=== PATIENT | male | born 1960 | race Caucasian/White ===

== ENCOUNTER 2017-11-27 14:43 | Emergency (ER) | payer BC, OTHER ==
[2017-11-27] MEDS ORDERED: LORAZEPAM INJ 2 MG/1 ML VIAL IV ONE (14:50)
--- NOTE | 2017-11-27 15:06 | ER Document Report ---
ED Seizure - General Stated Complaint: POSSIBLE SEIZURE Time Seen by Provider: 11/27/17 14:47 Mode of Arrival: Medic Information source: Patient, Emergency Med Personnel TRAVEL OUTSIDE OF THE [place] IN LAST 30 DAYS: No - HPI Patient complains to provider of: First seizure Quality of pain: Other - SORENESS Severity: Mild Continued on arrival to ED: No Can details of seizure be obtained/verified: Yes Episode witnessed (by whom): Yes - [employer] [facility] [employer] Current seizure medications: No: Carbamazepine, Gabatin, Keppra, Lamictal, Phenytoin, Phenobarbital, Trileptal, Valproic acid, Vimpat, Other Preceding symptoms/context: denies: Recent illness/fever, Recent alcohol intake , Recent drug use, Sleep deprivation, Missed dose of meds, Changed meds or dosage, Somnolence History of: denies: Brain tumor or mets, CVA, Hydrocephalus, Migraines, TBI, V/ P shunt Character of seizure: Complete loss/conscious, Generalized shaking. No: Incontinent stool, Incontinent bladder Post-ictal symptoms: Confusion, Speech difficulty Injuries: Face - L. ZYGOMATIC Associated Symptoms: None - Related Data Allergies/Adverse Reactions: No Known Allergies Allergy (Verified 11/27/17 15:36) Past Medical History - General Information source: Patient - Social History Smoking Status: Never Smoker Cigarette use (# per day): No Chew tobacco use (# tins/day): No Frequency of alcohol use: None Drug Abuse: None Lives with: Alone Family History: DM Patient has suicidal ideation: No Patient has homicidal ideation: No - Past Medical History Cardiac Medical History: Reports: None Pulmonary Medical History: Reports: None EENT Medical History: Reports: None Neurological Medical History: Reports: Hx Seizures - ONCE, MAY 2017, F/U EVAL. NEG. Endocrine Medical History: Reports: None Renal/ Medical History: Reports: None Malignancy Medical History: Reports None GI Medical History: Reports: None Musculoskeltal Medical History: Reports None Psychiatric Medical History: Reports: None Surgical Hx: Negative Review of Systems - Review of Systems Constitutional: No symptoms reported. denies: Chills, Fever EENT: No symptoms reported Cardiovascular: No symptoms reported Respiratory: No symptoms reported Gastrointestinal: No symptoms reported Genitourinary: No symptoms reported Musculoskeletal: No symptoms reported Skin: See HPI Neurological/Psychological: See HPI Physical Exam - Vital signs Vitals: Temp Pulse Resp BP Pulse Ox 98.7 F 79 10 L 115/78 98 11/27/17 14:45 11/27/17 14:45 11/27/17 14:45 11/27/17 14:45 11/27/17 14:45 Interpretation: Other - BRADYPNEIC. No: Hypotensive, Hypertensive, Bradycardic , Tachycardic, Hypoxic, Tachypneic, Febrile - General General appearance: Appears well, Alert In distress: None - HEENT Head: Normocephalic. No: Atraumatic - SEE "SKIN" BELOW Eyes: Other - DISPLACED HARD CONTACT LENS O.S. Conjunctiva: Normal Ears: Normal Nasal: Normal Mouth/Lips: Normal Mucous membranes: Normal Pharynx: Normal Neck: Normal - Respiratory Respiratory status: No respiratory distress Breath sounds: Normal - Cardiovascular Rhythm: Regular Heart sounds: Normal auscultation Murmur: No - Abdominal Inspection: Normal Distension: No distension Bowel sounds: Normal - Extremities General upper extremity: Normal inspection General lower extremity: Normal inspection - Neurological Neuro grossly intact: Yes Cognition: Confused - INITIALLY, CLEARED QUICKLY Orientation: AAOx4 [place] Coma Scale Eye Opening: Spontaneous [place] Coma Scale Verbal: Oriented [place] Coma Scale Motor: Obeys Commands [place] Coma Scale Total: 15 Speech: Normal Cranial nerves: Normal Cerebellar coordination: Normal - Psychological Associated symptoms: Normal affect, Normal mood - Skin Skin Temperature: Warm Skin Moisture: Dry Skin Color: Normal Skin Turgor: Elastic Skin irregularity: other - CONTUSION/ABRASION L. ZYGOMATIC AREA. Course - Vital Signs Vital signs: Temp Pulse Resp BP Pulse Ox 98.7 F 79 11 L 118/78 98 11/27/17 14:45 11/27/17 14:45 11/27/17 17:01 11/27/17 17:01 11/27/17 17:01 - Laboratory Result Diagrams: 11/27/17 14:57 11/27/17 15:45 Laboratory results interpreted by me: 11/27/17 11/27/17 14:57 15:45 MCV 98 H Glucose 116 H Magnesium 2.5 H Total Bilirubin 1.7 H Alkaline Phosphatase 37 L Salicylates < 1.0 L Acetaminophen < 10 L Discharge - Discharge Clinical Impression: Seizure Facial abrasion Qualifiers: Encounter type: initial encounter Qualified Code(s): S00.81XA - Abrasion of other part of head, initial encounter Condition: Stable Disposition: HOME, SELF-CARE Instructions: New Seizure ([facility]) Additional Instructions: REST, DRINK PLENTY OF FLUIDS. AVOID DRIVING OR DOING ANYTHING HAZARDOUS UNTIL YOU ARE SEEN AND CLEARED BY NEUROLOGIST. FOLLOW UP WITH [facility] TOMORROW (TUESDAY, NOVEMBER 28). CALL DR. FENG'S OFFICE TOMORROW AND INQUIRE WHETHER HE CAN SEE YOU FOR FOLLOW-UP EVALUATION. RETURN TO E.R. IF PROBLEMS, ANY TIME.
[2017-11-27 15:43] LABS: ABSOLUTE BASOPHILS # (AUTO) 0.1 10^3/uL (0.0-0.2); ABSOLUTE EOSINOPHILS # (AUTO) 0.1 10^3/uL (0.0-0.6); ABSOLUTE LYMPHOCYTES (AUTO) 2.6 10^3/uL (0.5-4.7); ABSOLUTE MONOCYTES (AUTO) 0.4 10^3/uL (0.1-1.4); ABSOLUTE NEUT (AUTO) 3.1 10^3/uL (1.7-8.2); EOSINOPHILS % (AUTO) 1.2 % (0-6); HEMATOCRIT 48.3 % (37.9-51.0); HEMOGLOBIN 16.1 g/dL (13.5-17.0); LYMPHOCYTES % (AUTO) 41.6 % (13-45); MEAN CORPUSCULAR HEMOGLOBIN 32.7 pg (27.0-33.4); MEAN CORPUSCULAR HGB CONC 33.4 g/dL (32.0-36.0); MEAN CORPUSCULAR VOLUME 98 fl (80-97); MONOCYTES % (AUTO) 6.2 % (3-13); PLATELET COUNT 155 10^3/uL (150-450); RED BLOOD COUNT 4.93 10^6/uL (4.35-5.55); RED CELL DISTRIBUTION WIDTH 13.2 % (11.5-14.0); TOTAL CELLS COUNTED % (AUTO) 100 %; WHITE BLOOD COUNT 6.2 10^3/uL (4.0-10.5)
--- NOTE | 2017-11-27 15:56 | RADIOLOGY REPORT (SQ) ---
EXAM DESCRIPTION: CT HEAD WITHOUT COMPLETED DATE/TIME: 11/27/2017 3:38 pm REASON FOR STUDY: FIRST TIME SEIZURE COMPARISON: None. TECHNIQUE: Axial images acquired through the brain without intravenous contrast. Images reviewed wi th bone, brain and subdural windows. Images stored on PACS. All CT scanners at this facility use dose modulation, iterative reconstruction, and/or weight based d osing when appropriate to reduce radiation dose to as low as reasonably achievable (ALARA). [facility]: Dose Right [facility]: CareDose [facility]: Dose Right [facility]: Teradose 4D [facility]: V-Key RADIATION DOSE: CT Rad equipment meets quality standard of care and radiation dose reduction techniq ues were employed. CTDIvol: 48.7 mGy. DLP: 980 mGy-cm. mGy. LIMITATIONS: None. FINDINGS: VENTRICLES: Normal size and contour. CEREBRUM: No masses. No hemorrhage. No midline shift. No evidence for acute infarction. Normal gra y/white matter differentiation. No areas of low density in the white matter. CEREBELLUM: No masses. No hemorrhage. No alteration of density. No evidence for acute infarction. EXTRAAXIAL SPACES: No fluid collections. No masses. ORBITS AND GLOBE: No intra- or extraconal masses. Normal contour of globe without masses. CALVARIUM: No fracture. PARANASAL SINUSES: No fluid or mucosal thickening. SOFT TISSUES: No mass or hematoma. OTHER: No other significant finding. IMPRESSION: No acute intracranial findings. EVIDENCE OF ACUTE STROKE: No COMMENT: Quality ID # [id number]: Final reports with documentation of one or more dose reduction techniques (e.g., Automated exposure control, adjustment of the mA and/or kV according to patient size, use of iterative reconstruction technique) TECHNICAL DOCUMENTATION: JOB ID: [id number] [place]-72 2010 [employer]- All Rights Reserved Reading location - IP/workstation name: [email or web address]
--- NOTE | 2017-11-27 16:14 | RADIOLOGY REPORT (SQ) ---
EXAM DESCRIPTION: HUMERUS LEFT COMPLETED DATE/TIME: 11/27/2017 4:03 pm REASON FOR STUDY: SEIZURE / TRAUMA / PAIN COMPARISON: None. NUMBER OF VIEWS: Two views. TECHNIQUE: Two radiographic images were acquired of the left humerus to include elbow and shoulder i n at least one projection. LIMITATIONS: None. FINDINGS: MINERALIZATION: Normal. BONES: No acute fracture or dislocation. No worrisome bone lesions. SOFT TISSUES: No obvious swelling or foreign body. OTHER: No other significant finding. IMPRESSION: NEGATIVE STUDY OF THE LEFT HUMERUS. NO RADIOGRAPHIC EVIDENCE OF ACUTE INJURY. TECHNICAL DOCUMENTATION: JOB ID: [id number] [place]-72 2010 [email or web address]- All Rights Reserved Reading location - IP/workstation name: [id number]
[2017-11-27 16:33] LABS: ACETAMINOPHEN < 10 ug/mL (10-30); ALANINE AMINOTRANSFERASE 27 U/L (21-72); ALBUMIN 4.3 g/dL (3.5-5.0); ALKALINE PHOSPHATASE 37 U/L (38-126); ANION GAP 8 (5-19); ASPARTATE AMINO TRANSFERASE 21 U/L (17-59); BILIRUBIN,DIRECT 0.1 mg/dL (0.0-0.4); BILIRUBIN,TOTAL 1.7 mg/dL (0.2-1.3); BLOOD UREA NITROGEN 13 mg/dL (7-20); CALCIUM 9.7 mg/dL (8.4-10.2); CARBON DIOXIDE 27 mmol/L (22-30); CHLORIDE 104 mmol/L (98-107); CREATINE KINASE 57 U/L (55-170); GLUCOSE 116 mg/dL (75-110); SALICYLATE < 1.0 mg/dL (2.0-20.0); SODIUM 139.3 mmol/L (137-145); TOTAL PROTEIN 6.6 g/dL (6.3-8.2)
[2017-11-27 18:30] VITALS: BP 136/87
== END 2017-11-27 18:34 | disposition home or self-care (01) ==
LOC: ER 14:43
DX: R56.9 Unspecified convulsions (principal); S00.83XA Contusion of other part of head, initial encounter; X58.XXXA Exposure to other specified factors, initial encounter; R06.89 Other abnormalities of breathing; R41.0 Disorientation, unspecified
CPT/HCPCS: 99285; 96374; 36415; 82550; 83735; 80307 ×2; 85025; 80053; 73060; 70450; J2060

== ENCOUNTER 2020-03-24 19:01 | Emergency (ER) | payer OTHER ==
--- NOTE | 2020-03-24 20:02 | ER Document Report ---
ED Medical Screen (RME) - General Chief Complaint: Swelling of Lower Extremity Stated Complaint: RIGHT LOWER EXTREMITY PAIN/SWELLING Time Seen by Provider: 03/24/20 19:57 Notes: HPI: 60-year-old male presenting with swelling of the lower extremities right worse than left over the last 3 to 4 weeks. No chest pain no shortness of breath. Reports general good health. PHYSICAL EXAMINATION: Right lower extremity and calf are significantly swollen with 3+ pitting edema with overlying erythema slightly increased warmth. Left lower extremity and calf are slightly swollen with 1+ pitting edema and mild overlying erythema. Dorsalis pedal pulses are present in both lower extremities. I have greeted and performed a rapid initial assessment of this patient. A comprehensive ED assessment and evaluation of the patient, analysis of test re sults and completion of medical decision making process will be conducted by an additional ED providers. TRAVEL OUTSIDE OF THE [place] IN LAST 30 DAYS: No - Related Data Allergies/Adverse Reactions: No Known Allergies Allergy (Verified 11/27/17 15:36) Home Medications: keppra, aleve Past Medical History - Social History Chew tobacco use (# tins/day): No Frequency of alcohol use: None Drug Abuse: None Neurological Medical History: Reports: Hx Seizures - ONCE, MAY 2017, F/U EVAL. NEG. Renal/ Medical History: Denies: Hx Peritoneal Dialysis Past Surgical History: Reports: Hx Tonsillectomy Physical Exam - Vital signs Vitals: Temp Pulse Resp BP Pulse Ox 98.3 F 55 L 17 152/85 H 99 03/24/20 19:17 03/24/20 19:17 03/24/20 19:17 03/24/20 19:17 03/24/20 19:17 Course - Vital Signs Vital signs: Temp Pulse Resp BP Pulse Ox 98.3 F 55 L 17 152/85 H 99 03/24/20 19:17 03/24/20 19:17 03/24/20 19:17 03/24/20 19:17 03/24/20 19:17
[2020-03-24 20:38] LABS: ABSOLUTE EOSINOPHILS # (AUTO) 0.1 10^3/uL (0.0-0.6); ABSOLUTE LYMPHOCYTES (AUTO) 2.8 10^3/uL (0.5-4.7); ABSOLUTE MONOCYTES (AUTO) 0.5 10^3/uL (0.1-1.4); ABSOLUTE NEUT (AUTO) 2.4 10^3/uL (1.7-8.2); BASOPHILS % (AUTO) 0.8 % (0-2); EOSINOPHILS % (AUTO) 2.4 % (0-6); HEMATOCRIT 47.9 % (37.9-51.0); LYMPHOCYTES % (AUTO) 48.1 % (13-45); MEAN CORPUSCULAR HEMOGLOBIN 32.4 pg (27.0-33.4); MEAN CORPUSCULAR HGB CONC 33.4 g/dL (32.0-36.0); MEAN CORPUSCULAR VOLUME 97 fl (80-97); MONOCYTES % (AUTO) 8.2 % (3-13); PLATELET COUNT 156 10^3/uL (150-450); RED BLOOD COUNT 4.94 10^6/uL (4.35-5.55); RED CELL DISTRIBUTION WIDTH 13.2 % (11.5-14.0); SEGMENTED NEUTROPHILS % (AUTO) 40.5 % (42-78); TOTAL CELLS COUNTED % (AUTO) 100 %; WHITE BLOOD COUNT 5.9 10^3/uL (4.0-10.5)
[2020-03-24 20:52] LABS: ALBUMIN 4.2 g/dL (3.5-5.0); ALKALINE PHOSPHATASE 51 U/L (38-126); ANION GAP 6 (5-19); ASPARTATE AMINO TRANSFERASE 27 U/L (17-59); BLOOD UREA NITROGEN 19 mg/dL (7-20); CALCIUM 9.2 mg/dL (8.4-10.2); CARBON DIOXIDE 28 mmol/L (22-30); CHLORIDE 103 mmol/L (98-107); GLUCOSE 88 mg/dL (75-110); INTERNATIONAL RATION (INR) 0.97; PROTHROMBIN TIME 13.1 SEC (11.4-15.4); TOTAL PROTEIN 7.1 g/dL (6.3-8.2)
--- NOTE | 2020-03-24 20:56 | RADIOLOGY REPORT (SQ) ---
EXAM DESCRIPTION: XR CHEST 1 VIEW COMPLETED DATE/TME: 03/24/2020 20:01 CLINICAL HISTORY: 60 years, Male, leg swelling EXAM DESCRIPTION: CLINICAL HISTORY: leg swelling COMPARISON: None. FINDINGS: Single view of the chest is submitted. There is mild pulmonary edema. Cardiac silhouette is normal. No focal parenchymal or pleural disease. No acute bony abnormality. There is no significant pulmonary vascular engorgement. IMPRESSION: Mild pulmonary edema. Otherwise unremarkable.
[2020-03-24 21:04] LABS: NT PRO BNP 83 pg/mL (<125)
[2020-03-24 21:06] LABS: TROPONIN I < 0.012 ng/mL
--- NOTE | 2020-03-24 21:32 | RADIOLOGY REPORT (SQ) ---
EXAM DESCRIPTION: US EXTREMITY VEINS BILATERAL COMPLETED DATE/TME: 03/24/2020 20:00 CLINICAL HISTORY: Edema COMPARISON: None Available TECHNIQUE: Duplex images of the common femoral, greater saphenous, superficial femoral, popliteal, peroneal, anterior and posterior tibial veins of both lower extremities were submitted. FINDINGS: All of the above-mentioned venous structures demonstrate normal spontaneous flow with respiratory phasicity and were fully compressible. There is subcutaneous edema within the right lower extremity.. IMPRESSION: No sonographic evidence of acute DVT within the lower extremities. Subcutaneous edema.
[2020-03-24] MEDS ORDERED: FUROSEMIDE INJ/PF 20 MG/2 ML SDV IV ONE (22:25)
--- NOTE | 2020-03-24 22:26 | ER Document Report ---
ED General - General Chief Complaint: Swelling of Lower Extremity Stated Complaint: RIGHT LOWER EXTREMITY PAIN/SWELLING Time Seen by Provider: 03/24/20 19:57 Notes: 60-year-old man presents to the emergency department with a 3-week history of s welling in his lower extremities. He notes that swelling has come on and has been progressive. He has no chest pain shortness of breath or palpitations. He denies a prior history of similar episodes. He denies diabetes mellitus, congestive heart failure, or liver disease. He contacted the [facility] and after the phone call was directed to come for evaluation. He went to [facility] and there he was also directed to come to the emergency department for further evaluation and treatment. He denies pain, notes increased swelling. TRAVEL OUTSIDE OF THE [place] IN LAST 30 DAYS: No - Related Data Allergies/Adverse Reactions: No Known Allergies Allergy (Verified 11/27/17 15:36) Home Medications: keppra, aleve Past Medical History - Social History Smoking Status: Never Smoker Chew tobacco use (# tins/day): No Frequency of alcohol use: None Drug Abuse: None Family History: DM Patient has homicidal ideation: No Neurological Medical History: Reports: Hx Seizures - ONCE, MAY 2017, F/U EVAL. NEG. Renal/ Medical History: Denies: Hx Peritoneal Dialysis Past Surgical History: Reports: Hx Tonsillectomy Review of Systems - Review of Systems Notes: Constitutional: Negative for fever. HENT: Negative for sore throat. Eyes: Negative for visual changes. Cardiovascular: Negative for chest pain. Respiratory: Negative for shortness of breath. Gastrointestinal: Negative for abdominal pain, vomiting or diarrhea. Genitourinary: Negative for dysuria. Musculoskeletal: + Bilateral lower extremity edema Skin: Negative for rash. Neurological: Negative for headaches, weakness or numbness. 10 point ROS negative except as marked above and in HPI. Physical Exam - Vital signs Vitals: Temp Pulse Resp BP Pulse Ox 98.3 F 55 L 17 152/85 H 99 03/24/20 19:17 03/24/20 19:17 03/24/20 19:17 03/24/20 19:17 03/24/20 19:17 - Notes Notes: PHYSICAL EXAMINATION: Physical Exam: General: Well-nourished well-developed 60-year-old male in no acute distress HEENT: NC/AT, pupils equal round and reactive to light, MM moist,nares clear, or opharynx clear, airway patent Neck: supple, no adenopathy, no masses. Good range of motion Lungs: clear, no wheezing, no rales no rhonchi CVS: Regular rate and rhythm no murmur gallop or rub Abdomen: Soft, active, nontender, no masses, no hepatosplenomegaly Ext: 2+ edema bilateral lower extremity edema Neuro: Alert and responsive, moving all 4 extremities on command, cranial nerves intact, no focal findings Skin: Intact no open lesions, no rash PSYCH: Normal mood, normal affect. Course - Re-evaluation Re-evalutation: 03/25/20 00:24 Patient was given an evaluation for peripheral edema, liver functions, renal function, and temporal cardiac reveals no acute problems. May represent peripheral edema, nontender unlikely to be DVT. Patient was given Lasix 20 mg IV in the emergency department and has diuresed thousand milliliters. I explained to the patient that this is peripheral edema and that he would benefit from elevation of his feet, COOKIE hose, and intermittent low doses of diuretic medications. I encouraged him to follow-up with his primary care doctor for long-term management. Patient is in agreement with this plan - Vital Signs Vital signs: Temp Pulse Resp BP Pulse Ox 98.3 F 55 L 17 152/85 H 99 03/24/20 19:17 03/24/20 19:17 03/24/20 19:17 03/24/20 19:17 03/24/20 19:17 - Laboratory Result Diagrams: 03/24/20 20:09 03/24/20 20:09 Laboratory results interpreted by me: 03/24/20 03/24/20 20:09 20:09 Lymph % (Auto) 48.1 H Seg Neutrophils % 40.5 L Sodium 136.7 L 03/25/20 00:26 I have reviewed laboratory data and used this information for the treatment decisions regarding the patient. Discharge - Discharge Clinical Impression: Peripheral edema, Localized swelling of both lower legs Condition: Good Disposition: HOME, SELF-CARE Instructions: Edema, Peripheral ([facility]) Additional Instructions: You were seen in the emergency department tonight with peripheral edema. The s welling in your legs appear to be related to the venous and lymphatic system return of blood and movement of fluid into the tissues. The medication that you were given tonight decreased to swelling some. I am giving you a prescription for short-term treatment and requested that you follow-up with your primary care doctor for long-term management. The use of COOKIE stockings, elevation of your legs and exercise will also help in the long-term management of this problem. HOME CARE INSTRUCTIONS & INFORMATION: Thank you for choosing us for your medical needs. We hope you're satisfied with the care you received. After you leave, you must properly care for your problem and, at the same time, observe its progress. Any condition can change. Some illnesses can change rapidly over hours or days. If your condition worsens, return to the Emergency Department or see your physician promptly. ABOUT YOUR X-RAYS AND EKG'S: If you had an EKG or X-rays taken, they have been read by the Emergency Physician. The X-rays and EKG's will also be read by a Radiologist or High [employer] Science Tutor within 24 hours. If discrepancies are noted, you will be notified by telephone. Please be certain the ED has a correct telephone number & address where you can be reached. Also, realize that some fractures or abnormalities do not show up on initial X-rays. If your symptoms continue, see your physician. ABOUT YOUR LABORATORY TEST: If you had laboratory tests, the results have been reviewed by the Emergency Physician. Some test results (for example cultures) may not be available for several days. You will be contacted if any test result shows you need additional treatment. Please be certain the ED has a correct telephone number and address where you can be reached. ABOUT YOUR MEDICATIONS: You will receive instructions on how to take your medicine on the prescription label you receive. Additional information may be provided by the Pharmacy. If you have questions afterwards, call the ED for c larification or further instructions. Some prescribed medications may cause drowsiness. Do not perform tasks such as driving a car or operating machinery without consulting your Pharmacist. If you feel you need a refill of pain medication, your condition will need re-evaluation. Please do not call for a refill of any medication. ABOUT YOUR SIGNATURE: Signature of this document acknowledges to followin. Understanding that you received emergency treatment and that you may be released before al medical problems are known or treated. Please be certain the ED has a correct phone number & address where you can be reached. 2. Acknowledgement that you will arrange for follow-up care as recommended. 3. Authorization for the Emergency Physician to provide information to your follow-up Physician in order to maximize your care. AT ANY TIME, IF YOUR SYMPTOMS CHANGE SIGNIFICANTLY OR WORSEN OR YOU DEVELOP NEW SYMPTOMS, RETURN TO THE EMERGENCY DEPARTMENT IMMEDIATELY FOR RE-EVALUATION. OUR GOAL IS TO PROVIDE EXCELLENT MEDICAL CARE! WE HOPE THAT WE HAVE MET YOUR EXPECTATIONS DURING YOUR EMERGENCY DEPARTMENT VISIT AND THAT YOU FEEL YOU HAVE RECEIVED EXCELLENT CARE! Prescriptions: Furosemide [Lasix 20 mg Tablet] 20 mg PO QAM #10 tablet Naproxen [Naprosyn] 500 mg PO BID #20 tablet
[2020-03-25 00:45] VITALS: BP 118/81
--- NOTE | 2020-03-25 09:16 | EKG REPORT ---
SEVERITY:- ABNORMAL ECG - SINUS BRADYCARDIA BORDERLINE LEFT AXIS DEVIATION consider old anteroseptal MT. : Confirmed by: Jeevan Calderon MD 25-Mar-2020 09:15:42
== END 2020-03-25 01:04 | disposition home or self-care (01) ==
LOC: ER 19:01
DX: R60.9 Edema, unspecified (principal); M79.89 Other specified soft tissue disorders
CPT/HCPCS: 93005; 99285; 96374; 36415; 85025; 85610; 80053; 84484; 83880; 93970; 71045; 93010; J1940